=== PATIENT | male | born 1980 | race Caucasian/White ===

== ENCOUNTER 2017-01-20 11:25 | Emergency (ER) | payer OTHER ==
[~2017-01-20] VITALS: Ht 175.3 cm; Wt 78.0 kg
[2017-01-20 13:35] VITALS: BP 145/88
[2017-01-20] MEDS ORDERED: MAGNESIUM HYDROXIDE 8%, 30ML UDC PO ONE (14:55)
[2017-01-21] MEDS ORDERED: MAGNESIUM HYDROXIDE 8%, 30ML UDC PO SCH (09:00)
== END 2017-01-20 14:22 | disposition home or self-care (01) ==
LOC: ED 14:16
DX: R19.7 Diarrhea, unspecified (principal); K59.00 Constipation, unspecified
CPT/HCPCS: 99283